=== PATIENT | male | born 1965 | race Caucasian/White ===

== ENCOUNTER 2019-09-02 17:55 | Inpatient (IN) | payer OTHER ==
[2019-09-02] MEDS ORDERED: ASPIRIN 81 MG PO STA (18:44)
[2019-09-02 18:55] LABS: Basophils # (A) 0.1 k/uL (0-0.2); Basophils % (A) 1 %; Eosinophils # (A) 0.4 k/uL (0-0.7); Eosinophils % (A) 5 %; HCT 38.1 % (39.0-53.0); HGB 13.7 gm/dL (13.0-17.5); Lymphocytes # (A) 2.8 k/uL (1.0-4.8); Lymphocytes % (A) 30 %; MCH 33.6 pg (25.0-35.0); MCV 93.4 fL (80.0-100.0); Monocytes # (A) 0.6 k/uL (0-1.0); Monocytes % (A) 7 %; Neutrophils # (A) 5.2 k/uL (1.3-7.7); Neutrophils % (A) 56 %; Platelet Count 189 k/uL (150-450); RBC 4.08 m/uL (4.30-5.90); RDW 11.8 % (11.5-15.5); WBC 9.3 k/uL (3.8-10.6)
[2019-09-02 19:05] LABS: ALT 32 U/L (4-49); AST 31 U/L (17-59); African American GFR (CKD) >90 (>60 ml/min/1.73 sqM); Albumin 4.1 g/dL (3.5-5.0); Alkaline Phosphatase 32 U/L (38-126); Anion Gap 8 mmol/L; Blood Urea Nitrogen 14 mg/dL (9-20); Calcium 9.7 mg/dL (8.4-10.2); Carbon Dioxide 25 mmol/L (22-30); Chloride 103 mmol/L (98-107); Glucose 152 mg/dL (74-99); Magnesium 1.8 mg/dL (1.6-2.3); Non-African American GFR(CKD) >90 (>60 ml/min/1.73 sqM); Potassium 4.2 mmol/L (3.5-5.1); Sodium 136 mmol/L (137-145); Total Bilirubin 0.4 mg/dL (0.2-1.3); Total Protein 6.3 g/dL (6.3-8.2)
[2019-09-02 19:10] LABS: INR 1.1 (<1.2); Partial Thromboplastin Time 23.6 sec (22.0-30.0); Prothrombin Time 11.2 sec (9.0-12.0)
--- NOTE | 2019-09-02 19:22 | XR ---
EXAMINATION TYPE: XR chest 2V DATE OF EXAM: 09/02/2019 COMPARISON: NONE HISTORY: Chest pain TECHNIQUE: Frontal and lateral views of the chest are obtained. FINDINGS: There is no focal air space opacity, pleural effusion, or pneumothorax seen. The cardiac silhouette size is within normal limits. The osseous structures are intact, thoracic spondylosis is noted, arthropathy present at the acromioclavicular joints. Patient is post median sternotomy. There are overlying cardiac leads. Superior sternal wire is fractured. IMPRESSION: No acute cardiopulmonary process.
--- NOTE | 2019-09-02 19:27 | ED ---
Chest Pain HPI - General Source: patient Mode of arrival: ambulatory Limitations: no limitations <Rose Rosenberg - Last Filed: 09/02/19 19:32> <Selina Alvarez - Last Filed: 09/05/19 21:54> - General Chief Complaint: Chest Pain Stated Complaint: Chest pain Time Seen by Provider: 09/02/19 18:08 - History of Present Illness Initial Comments: 54-year-old male patient with past medical history significant for coronary artery disease, CABG, hypertension, hyperlipidemia presents to the emergency department today for evaluation of chest pain. Patient is currently incarcerated, states he did have an episode similar to this on August 15. States he was not evaluated at that time but did have nitro. States the symptoms returned today several hours ago. He states the pain is in the center of his chest radiates on the left arm and into his back. He does report some shortness of breath but denies any nausea or vomiting. Denies any sweating. Patient states he has been receiving his medications while in [facility]. Patient denies any recent rash, fever, chills, cough, abdominal pain, diarrhea, constipation, back pain, numbness, tingling, dizziness, weakness, hematuria, dysuria, urinary urgency, urinary frequency, headache, visual changes, or any other complaints. (Rose Rosenberg) - Related Data Home Medications Medication Instructions Recorded Confirmed Aspirin EC [Ecotrin Low Dose] 81 mg PO DAILY 09/02/19 09/02/19 Atorvastatin [Lipitor] 80 mg PO HS 09/02/19 09/02/19 Carvedilol [Coreg] 25 mg PO BID 09/02/19 09/02/19 DULoxetine HCL [Cymbalta] 60 mg PO BID 09/02/19 09/02/19 Hydrochlorothiazide [Hydrodiuril] 25 mg PO DAILY 09/02/19 09/02/19 Isosorbide Mononitrate ER [Imdur] 60 mg PO DAILY 09/02/19 09/02/19 Losartan Potassium 100 mg PO DAILY 09/02/19 09/02/19 Naproxen [Naprosyn] 500 mg PO BID 09/02/19 09/02/19 Nitroglycerin Sl Tabs [Nitrostat] 0.4 mg SUBLINGUAL Q5M PRN 09/02/19 09/02/19 Spironolactone [Aldactone] 25 mg PO DAILY 09/02/19 09/02/19 amLODIPine [Norvasc] 10 mg PO DAILY 09/02/19 09/02/19 hydrALAZINE HCL [Apresoline] 25 mg PO HS 09/02/19 09/02/19 hydrALAZINE HCL [Apresoline] 50 mg PO DAILY 09/02/19 09/02/19 metFORMIN HCL [Glucophage] 500 mg PO BID 09/02/19 09/02/19 Allergies Allergy/AdvReac Type Severity Reaction Status Date / Time No Known Allergies Allergy Verified 09/02/19 20:03 Review of Systems ROS Other: All systems not noted in ROS Statement are negative. <Rose Rosenberg - Last Filed: 09/02/19 19:32> ROS Other: All systems not noted in ROS Statement are negative. <Selina Alvarez - Last Filed: 09/05/19 21:54> ROS Statement: Those systems with pertinent positive or pertinent negative responses have been documented in the HPI. EKG Findings - EKG Comments: EKG Findings:: EKG obtained at 1810 shows normal sinus rhythm with a ventricular rate of 66, AL interval 162, QRS duration 90, QT 402, QTc 421. No evidence of ST elevation or depression. <Rose Rosenberg - Last Filed: 09/02/19 19:32> Past Medical History Past Medical History: Coronary Artery Disease (CAD), Diabetes Mellitus, Hyperlipidemia, Hypertension Additional Past Medical History / Comment(s): chronic back pain History of Any Multi-Drug Resistant Organisms: None Reported Past Surgical History: Back Surgery, Coronary Bypass/CABG, Heart Catheterization With Stent Additional Past Surgical History / Comment(s): hardware to back Past Psychological History: No Psychological Hx Reported Smoking Status: Never smoker Past Alcohol Use History: None Reported Past Drug Use History: None Reported <Rose Rosenberg - Last Filed: 09/02/19 19:32> General Exam Limitations: no limitations General appearance: alert, in no apparent distress, other (This is a well- developed, well-nourished adult male patient in no acute distress. Vital signs upon presentation are temperature 97.6F, pulse 67, respirations 18, blood pressure 126/74, pulse ox 100% on room air.) ENT exam: Present: normal exam, normal oropharynx, mucous membranes moist Respiratory exam: Present: normal lung sounds bilaterally. Absent: respiratory distress, wheezes, rales, rhonchi, stridor Cardiovascular Exam: Present: regular rate, normal rhythm, normal heart sounds. Absent: systolic murmur, diastolic murmur, rubs, gallop, clicks GI/Abdominal exam: Present: soft, normal bowel sounds. Absent: distended, tenderness, guarding, rebound, rigid Neurological exam: Present: alert, oriented X3, CN II-XII intact Psychiatric exam: Present: normal affect, normal mood Skin exam: Present: warm, dry, intact, normal color. Absent: rash <Rose Rosenberg - Last Filed: 09/02/19 19:32> Course Vital Signs 09/02/19 09/02/19 09/02/19 17:58 19:30 20:30 Temperature 97.6 F 98.1 F Pulse Rate 67 71 71 Respiratory 18 18 19 Rate Blood Pressure 126/74 121/86 131/76 O2 Sat by Pulse 100 99 97 Oximetry Chest Pain MDM <Rose Rosenberg - Last Filed: 09/02/19 19:32> <Selina Alvarez - Last Filed: 09/05/19 21:54> - [facility] Radiology:Two-view x-ray of the chest is obtained. Report was reviewed in its entirety. Impression by Dr. Carpenter shows no acute cardiopulmonary process. MDM: 54-year-old male patient with past medical history significant for coronary artery disease, CABG, hyperlipidemia, hypertension presents to the emergency department today for evaluation of chest pain and shortness of breath. Physical examination is unremarkable. EKG showed normal sinus rhythm. There is no evidence of ST elevation or depression. Given patient's history we will admit to the hospital for further evaluation by cardiology. He was given aspirin. Patient is agreeable with this plan. (Rose Rosenberg) I was available for consultation in the emergency department. The history and physical exam were done by the midlevel provider. I was consulted for this patients care. I reviewed the case with the midlevel provider and based on their presentation of the patient, I agree with the assessment, medical decision making and plan of care as documented. Chart was dictated using [employer] dictation software. Attempts were made to correct any dictation errors however some typographical errors may persist. Patient was seen during a national state of emergency due to the Covid-19 pandemic. (Selina Alvarez) Disposition Decision to Admit Reason: Admit from EC Decision Date: 09/02/19 Decision Time: 19:30 <Rose Rosenberg - Last Filed: 09/02/19 19:32> <Selina Alvarez - Last Filed: 09/05/19 21:54> Clinical Impression: Chest pain Disposition: ADMITTED IP TO THIS HOSP Condition: Serious
[2019-09-02] MEDS ORDERED: NITROGLYCERIN SL TABS 0.4 MG TAB SUBLINGUAL PRN (19:33)
[2019-09-02] MEDS ORDERED: MORPHINE SULFATE 4 MG/ML SYRINGE IVP PRN (19:34)
--- NOTE | 2019-09-02 22:41 | P.HPIM ---
History of Present Illness H&P Date: 09/02/19 The patient is a 54-year-old male with a PMH of type 2 diabetes mellitus, CAD status post CABG in [address] in [address], hypertension, and hyperlipidemia, currently incarcerated who was sent to the ED with complaints of persistent chest discomfort. The patient reports that he had previously been following with a outboard motor inspector at [facility], last seen in March 2019. Patient had reported to them his complaints of exertional dyspnea and substernal chest discomfort, and as per the patient, he was scheduled to undergo a cardiac catheterization with a possible revision of his CABG in June 2019. The patient was however incarcerated in late March 2019, and thereby has not had any follow-ups. He reports that 2 weeks ago, he had a sudden onset of substernal 9/10, pressure-like discomfort, radiating to the left arm, with associated shortness of breath, nausea, and diaphoresis. He was given nitroglycerin no did not seek further medical attention. The patient reports that he continues to have substernal discomfort though decreased intensity of 2/10, and sometimes related to exertion. He also reports a chronic lower back pain, and having undergone multiple surgeries, which is unchanged from previously. He denied fever, chills, cough, nausea, vomiting, visual disturbances, or headache. He underwent an extensive evaluation in the emergency room EKG showing normal sinus rhythm at 66 bpm with Q waves in leads II and III with no ST-T wave changes noted. CXR was unremarkable. Laboratory evaluation revealed Troponin less than 0.012, WBC count 9.3, hemoglobin 13.7, platelets 189, sodium 136, potassium 4.2, chloride 103, CO2 25, BUN 14, creatinine 0.70, and glucose 152. Review of Systems Pertinent positives and negatives as discussed in HPI, a complete review of systems was performed and all other systems are negative. Past Medical History Past Medical History: Coronary Artery Disease (CAD), Diabetes Mellitus, Hyperlipidemia, Hypertension Additional Past Medical History / Comment(s): chronic back pain History of Any Multi-Drug Resistant Organisms: None Reported Past Surgical History: Back Surgery, Coronary Bypass/CABG, Heart Catheterization With Stent Additional Past Surgical History / Comment(s): hardware to back Past Psychological History: No Psychological Hx Reported Smoking Status: Never smoker Past Alcohol Use History: None Reported Past Drug Use History: None Reported Medications and Allergies Home Medications Medication Instructions Recorded Confirmed Type Aspirin EC [Ecotrin Low Dose] 81 mg PO DAILY 09/02/19 09/02/19 History Atorvastatin [Lipitor] 80 mg PO HS 09/02/19 09/02/19 History Carvedilol [Coreg] 25 mg PO BID 09/02/19 09/02/19 History DULoxetine HCL [Cymbalta] 60 mg PO BID 09/02/19 09/02/19 History Hydrochlorothiazide [Hydrodiuril] 25 mg PO DAILY 09/02/19 09/02/19 History Isosorbide Mononitrate ER [Imdur] 60 mg PO DAILY 09/02/19 09/02/19 History Losartan Potassium 100 mg PO DAILY 09/02/19 09/02/19 History Naproxen [Naprosyn] 500 mg PO BID 09/02/19 09/02/19 History Nitroglycerin Sl Tabs [Nitrostat] 0.4 mg SUBLINGUAL Q5M PRN 09/02/19 09/02/19 History Spironolactone [Aldactone] 25 mg PO DAILY 09/02/19 09/02/19 History amLODIPine [Norvasc] 10 mg PO DAILY 09/02/19 09/02/19 History hydrALAZINE HCL [Apresoline] 25 mg PO HS 09/02/19 09/02/19 History hydrALAZINE HCL [Apresoline] 50 mg PO DAILY 09/02/19 09/02/19 History metFORMIN HCL [Glucophage] 500 mg PO BID 09/02/19 09/02/19 History Allergies Allergy/AdvReac Type Severity Reaction Status Date / Time No Known Allergies Allergy Verified 09/02/19 20:03 Physical Exam Vitals: Vital Signs Temp Pulse Resp BP Pulse Ox 09/02/19 19:30 71 18 121/86 99 09/02/19 17:58 97.6 F 67 18 126/74 100 Intake and Output 09/02/19 09/02/19 09/02/19 06:59 14:59 22:59 Other: Weight 88.904 kg General: non toxic, no distress, appears at stated age, normal weight Derm: no unusual rashes/lesions no unusual ecchymoses, warm, dry Head: atraumatic, normocephalic, symmetric Eyes: EOMI, no lid lag, anicteric sclera, pupils equal round reactive to light ENT: Nose and ears atraumatic, no thrush, no pharyngeal erythema Neck: No thyromegaly, no cervical lymphadenopathy, trachea midline, supple Mouth: no lip lesion, mucus membranes moist Cardiovascular: S1S2 reg, no murmur, positive posterior tibial pulse bilateral, no edema, capillary refill less than 2 seconds Lungs: CTA bilateral, no rhonchi, no rales , no accessory muscle use Abdominal: soft, nontender to palpation, no guarding, no appreciable organomegaly, normal bowel sounds Ext: no gross muscle atrophy, muscle strength 5 out of 5 in all 4 extremities grossly, no contractures, Neuro: CN II-XI grossly intact, light touch intact all 4 extremities, finger to nose within normal limits, Psych: Alert, oriented, appropriate affect Results CBC & Chem 7: 09/02/19 18:25 09/02/19 18:25 Labs: Abnormal Lab Results - Last 24 Hours (Table) 09/02/19 09/02/19 Range/Units 18:25 18:25 RBC 4.08 L (4.30-5.90) m/uL Hct 38.1 L (39.0-53.0) % Sodium 136 L (137-145) mmol/L Glucose 152 H (74-99) mg/dL Alkaline Phosphatase 32 L (38-126) U/L Assessment and Plan Plan: Chest pain, in setting of significant history of CAD status post CABG -Cardiology consult -Trend troponin -Will need records from [facility] -Cardiac monitoring -Continue with aspirin for now -Continue home meds: Lipitor, Coreg Type II DM -Takes metformin at baseline -Obtain A1c -EVELINE with FS Hypertension -Continue with home meds: HCTZ, Imdur, Aldactone, Norvasc -Hold off on Coreg due to borderline HR Hyperlipidemia -Continue with Lipitor home med DVT prophylaxis -Heparin subq The patient is admitted with an anticipated less than 2 midnight stay for evaluation of chest pain CODE STATUS: Full Code Discussed with: patient Anticipated discharge date: 1-[address]: [facility] A total of 40 minutes was spent on the care of this complex patient more than 50% of the time was spent in counseling and care coordination.
[2019-09-02] MEDS ORDERED: MORPHINE SULFATE 4 MG/ML SYRINGE ONE ×2 (23:10→23:12)
[2019-09-03] MEDS ORDERED: NITROGLYCERIN SL TABS 0.4 MG TAB SUBLINGUAL ONE (00:40)
[2019-09-03 06:45] LABS: Glucose,Whole Blood 160 mg/dL (75-99)
[2019-09-03 07:14] LABS: Cholesterol 91 mg/dL (<200); HDL Cholesterol 30 mg/dL (40-60); LDL Cholesterol,Calculated 31 mg/dL (0-99); Triglycerides 151 mg/dL (<150)
[2019-09-03] MEDS ORDERED: CARVEDILOL 12.5 MG TAB PO SCH (07:30)
[2019-09-03] MEDS: LOSARTAN 50 MG TAB PO SCH (08:49)
[2019-09-03] MEDS: HYDROCHLOROTHIAZIDE 25 MG TAB PO SCH (08:49)
[2019-09-03] MEDS: ISOSORBIDE MONONITRATE ER 60 MG TAB.ER.24H PO SCH (08:49)
[2019-09-03] MEDS: amLODIPine 10 MG TAB PO SCH (08:49)
[2019-09-03] MEDS: DULoxetine HCL 60 MG CAPSULE.DR PO SCH ×2 (08:49→20:39)
[2019-09-03] MEDS: hydrALAZINE HCL 50 MG TAB PO SCH (08:49)
[2019-09-03] MEDS: ASPIRIN 325 MG TAB PO SCH (08:49)
[2019-09-03] MEDS: HEPARIN SODIUM,PORCINE 5,000 UNIT/ML 1 ML VIAL SQ SCH (08:50)
[2019-09-03] MEDS: CARVEDILOL 3.125 MG TAB PO SCH ×2 (09:54→17:07)
[2019-09-03] MEDS ORDERED: NITROGLYCERIN SL TABS 0.4 MG TAB SUBLINGUAL PRN (10:57)
[2019-09-03] MEDS ORDERED: ALPRAZolam 0.25 MG TAB PO PRN (10:57)
[2019-09-03] MEDS ORDERED: ATORVASTATIN 80 MG TAB PO STA (10:57)
[2019-09-03] MEDS ORDERED: SODIUM CHLORIDE 0.9% 1,000 ML in EMPTY BAG 1 BAG IV ONE (10:57)
[2019-09-03 11:40] LABS: Glucose,Whole Blood 138 mg/dL (75-99)
[2019-09-03] MEDS: INSULIN ASPART (NovoLOG) 100 UNIT/ML VIAL SQ SCH ×2 (12:37→12:38)
--- NOTE | 2019-09-03 12:56 | P.CRDCN ---
History of Present Illness History of present illness: This is Aisha Dobbs PA-C dictating a consult on this patient The patient was interviewed and examined by me as well as by Dr. Rock Case discussed with Dr. Rock and he agrees with the plan of care HPI Patient is a 54-year-old male with a history significant for CAD status post CABG, hypertension, diabetes, dyslipidemia, chronic back pain who presented with complaints of chest discomfort. He follows with a physician at the [facility]. Apparently he was supposed to undergo cardiac catheterization in June however he is currently incarcerated so this was unable to be completed. For the last 3-4 weeks he has been having recurrent chest discomfort which he describes as a pressure with radiation down the left arm and associated numbness and tingling in the left hand. He also admits to associated nausea, dizziness, and mild shortness of breath. It is usually relieved by nitroglycerin however it has become progressively worse and yesterday it was not relieved by 2 nitroglycerin therefore he presented for evaluation. Upon arrival his vital signs were stable. EKG upon arrival shows sinus mechanism with Q waves in V1, no definite ST segment changes. Chest x-ray showed no acute process. Troponins negative 3. Patient was admitted for further evaluation. Repeat EKG this morning is unchanged. He continues to have chest pressure but states it has improved somewhat. It did get worse when he got up and use the restroom. Does complain of a headache. ROS: No fevers, chills or rigors, no cough, phlegm or expectoration, Positive for nausea no hematuria, dysuria, Positive for back pain no strokes or seizures, no skin lesions. EXAMINATION: Temperature 97.7F, pulse 60, respirations 16, blood pressure 125/74, oxygen saturation 98% on room air Patient seen and examined lying in bed, does not appear to be in any acute distress Lungs are clear to auscultation bilaterally Heart is regular, no audible murmurs No elevated JVD No lower extremity edema, extremities warm REVIEW OF LABS, ECG & MEDICAL DATA WBC 9.3, hemoglobin 13.7, platelets 198, potassium 4.2, BUN 14, creatinine 0.7 Troponin negative 3 LDL 31 Sinus rhythm to sinus bradycardia in the 50s on telemetry IMPRESSION / ASSESSMENT: #1 Recurrent symptoms of chest discomfort with associated shortness of breath, nausea, and dizziness, no acute ST segment changes on EKG, troponins negative 3 #2 history of CAD status post CABG #3 hypertension #4 diabetes #5 dyslipidemia #6 chronic back pain PLAN: Restart low-dose Coreg and monitor telemetry Continue Imdur Continue aspirin, statins, and antihypertensive therapy Obtain records from [facility] Plan for coronary angiogram likely tomorrow Obtain 2-D echocardiogram and Doppler studies to assess cardiac structure and function Past Medical History Past Medical History: Coronary Artery Disease (CAD), Diabetes Mellitus, Hyperlipidemia, Hypertension Additional Past Medical History / Comment(s): chronic back pain History of Any Multi-Drug Resistant Organisms: None Reported Past Surgical History: Back Surgery, Coronary Bypass/CABG, Heart Catheterization With Stent Additional Past Surgical History / Comment(s): hardware to back Date of Last Stent Placement:: 2010 Past Psychological History: No Psychological Hx Reported Smoking Status: Never smoker Past Alcohol Use History: None Reported Past Drug Use History: None Reported Medications and Allergies Home Medications Medication Instructions Recorded Confirmed Type Aspirin EC [Ecotrin Low Dose] 81 mg PO DAILY 09/02/19 09/02/19 History Atorvastatin [Lipitor] 80 mg PO HS 09/02/19 09/02/19 History Carvedilol [Coreg] 25 mg PO BID 09/02/19 09/02/19 History DULoxetine HCL [Cymbalta] 60 mg PO BID 09/02/19 09/02/19 History Hydrochlorothiazide [Hydrodiuril] 25 mg PO DAILY 09/02/19 09/02/19 History Isosorbide Mononitrate ER [Imdur] 60 mg PO DAILY 09/02/19 09/02/19 History Losartan Potassium 100 mg PO DAILY 09/02/19 09/02/19 History Naproxen [Naprosyn] 500 mg PO BID 09/02/19 09/02/19 History Nitroglycerin Sl Tabs [Nitrostat] 0.4 mg SUBLINGUAL Q5M PRN 09/02/19 09/02/19 History Spironolactone [Aldactone] 25 mg PO DAILY 09/02/19 09/02/19 History amLODIPine [Norvasc] 10 mg PO DAILY 09/02/19 09/02/19 History hydrALAZINE HCL [Apresoline] 25 mg PO HS 09/02/19 09/02/19 History hydrALAZINE HCL [Apresoline] 50 mg PO DAILY 09/02/19 09/02/19 History metFORMIN HCL [Glucophage] 500 mg PO BID 09/02/19 09/02/19 History Allergies Allergy/AdvReac Type Severity Reaction Status Date / Time No Known Allergies Allergy Verified 09/02/19 20:03 Physical Exam Vitals: Vital Signs Temp Pulse Pulse Resp BP BP Pulse Ox 09/03/19 07:49 97.7 F 60 16 125/74 98 09/03/19 05:24 98.1 F 52 L 16 116/66 98 09/02/19 21:40 98.0 F 59 L 16 124/70 99 09/02/19 21:20 98.0 F 59 L 16 99 09/02/19 20:30 98.1 F 71 19 131/76 97 09/02/19 19:30 71 18 121/86 99 09/02/19 17:58 97.6 F 67 18 126/74 100 Intake and Output 09/02/19 09/03/19 09/03/19 22:59 06:59 14:59 Other: # Voids 1 2 Weight 88.904 kg 84.6 kg Results 09/02/19 18:25 09/02/19 18:25 Cardiac Enzymes 09/02/19 09/02/19 09/03/19 Range/Units 18:25 18:25 00:35 AST 31 (17-59) U/L Troponin I <0.012 <0.012 (0.000-0.034) ng/mL 09/03/19 Range/Units 06:24 AST (17-59) U/L Troponin I <0.012 (0.000-0.034) ng/mL Coagulation 09/02/19 Range/Units 18:25 PT 11.2 (9.0-12.0) sec APTT 23.6 (22.0-30.0) sec Lipids 09/03/19 Range/Units 06:24 Triglycerides 151 H (<150) mg/dL Cholesterol 91 (<200) mg/dL HDL Cholesterol 30 L (40-60) mg/dL CBC 09/02/19 Range/Units 18:25 WBC 9.3 (3.8-10.6) k/uL RBC 4.08 L (4.30-5.90) m/uL Hgb 13.7 (13.0-17.5) gm/dL Hct 38.1 L (39.0-53.0) % Plt Count 189 (150-450) k/uL Comprehensive Metabolic Panel 09/02/19 Range/Units 18:25 Sodium 136 L (137-145) mmol/L Potassium 4.2 (3.5-5.1) mmol/L Chloride 103 (98-107) mmol/L Carbon Dioxide 25 (22-30) mmol/L BUN 14 (9-20) mg/dL Creatinine 0.70 (0.66-1.25) mg/dL Glucose 152 H (74-99) mg/dL Calcium 9.7 (8.4-10.2) mg/dL AST 31 (17-59) U/L ALT 32 (4-49) U/L Alkaline Phosphatase 32 L (38-126) U/L Total Protein 6.3 (6.3-8.2) g/dL Albumin 4.1 (3.5-5.0) g/dL Current Medications Generic Name Dose Route Start Last Admin Trade Name Vinceq PRN Reason Stop Dose Admin Amlodipine Besylate 10 mg 09/03/19 09:00 09/03/19 08:49 Norvasc PO 10 mg DAILY [facility] Administration Aspirin 325 mg 09/03/19 09:00 09/03/19 08:49 Aspirin PO 325 mg DAILY [facility] Administration Atorvastatin Calcium 80 mg 09/03/19 21:00 Lipitor PO HS [facility] Carvedilol 3.125 mg 09/03/19 09:45 09/03/19 09:54 Coreg PO 3.125 mg BID-W/MEALS ADALBERTO Administration Duloxetine HCl 60 mg 09/03/19 09:00 09/03/19 08:49 Cymbalta PO 60 mg BID [facility] Administration Heparin Sodium (Porcine) 5,000 unit 09/03/19 00:00 09/03/19 08:50 Heparin SQ 5,000 unit Q8HR ADALBERTO Administration Hydralazine HCl 25 mg 09/03/19 21:00 Apresoline PO HS [facility] Hydralazine HCl 50 mg 09/03/19 09:00 09/03/19 08:49 Apresoline PO 50 mg DAILY ADALBERTO Administration Hydrochlorothiazide 25 mg 09/03/19 09:00 09/03/19 08:49 Hydrodiuril PO 25 mg DAILY [facility] Administration Insulin Aspart 0 unit 09/03/19 07:30 Novolog SQ AC-TID [facility] Protocol Isosorbide Mononitrate 60 mg 09/03/19 09:00 09/03/19 08:49 Imdur PO 60 mg DAILY [facility] Administration Losartan Potassium 100 mg 09/03/19 09:00 09/03/19 08:49 Cozaar PO 100 mg DAILY [facility] Administration Nitroglycerin 0.4 mg 09/02/19 19:33 Nitrostat SUBLINGUAL Q5M PRN Chest Pain Intake and Output 09/02/19 09/03/19 09/03/19 22:59 06:59 14:59 Other: # Voids 1 2 Weight 88.904 kg 84.6 kg 09/02/19 18:25 09/02/19 18:25
[2019-09-03 14:30] LABS: Hemoglobin A1C 6.1 % (4.0-6.0)
[2019-09-03 16:46] LABS: Glucose,Whole Blood 105 mg/dL (75-99)
--- NOTE | 2019-09-03 18:07 | P.PN ---
Subjective Progress Note Date: 09/03/19 Principal diagnosis: Chest pain Patient was seen and examined. No acute events overnight. Patient reports continued chest pain that has not changed since admission. Chest pain is worsened with deep inspiration. Pain is 4-5 out of 10 in severity. He denies any nausea or vomiting. No fever or chills. Objective - Vital Signs Vital signs: Vital Signs Temp 97.7 F 09/03/19 07:49 Pulse 59 L 09/03/19 16:00 Resp 16 09/03/19 16:00 BP 111/66 09/03/19 16:00 Pulse Ox 98 09/03/19 16:00 Intake & Output 09/02/19 09/03/19 09/03/19 18:59 06:59 18:59 Intake Total 240 Balance 240 Weight 88.904 kg 84.6 kg Intake: Oral 240 Other: # Voids 2 1 - Exam General: [non toxic], [no distress], [appears at stated age] Derm: [warm], [dry] Head: [atraumatic], [normocephalic], [symmetric] Eyes: [EOMI], [no lid lag], [anicteric sclera] Mouth: [no lip lesion], [mucus membranes moist] Cardiovascular: [S1S2 reg], [no murmur], [positive posterior tibial pulse bilateral], Lungs: [CTA bilateral], [no rhonchi, no rales] , [no accessory muscle use] Abdominal: [soft], [ nontender to palpation], [no guarding], [no appreciable organomegaly] Ext: [no gross muscle atrophy], [no edema], [no contractures] Neuro: [ CN II-XI grossly intact], [no focal neuro deficits] Psych: [Alert], [oriented], [appropriate affect] - Labs CBC & Chem 7: 09/02/19 18:25 09/02/19 18:25 Labs: Abnormal Lab Results - Last 24 Hours (Table) 09/02/19 09/02/19 09/03/19 Range/Units 18:25 18:25 06:24 RBC 4.08 L (4.30-5.90) m/uL Hct 38.1 L (39.0-53.0) % Sodium 136 L (137-145) mmol/L Glucose 152 H (74-99) mg/dL POC Glucose (mg/dL) (75-99) mg/dL Hemoglobin A1c (4.0-6.0) % Alkaline Phosphatase 32 L (38-126) U/L Triglycerides 151 H (<150) mg/dL HDL Cholesterol 30 L (40-60) mg/dL 09/03/19 09/03/19 09/03/19 Range/Units 06:24 06:43 11:27 RBC (4.30-5.90) m/uL Hct (39.0-53.0) % Sodium (137-145) mmol/L Glucose (74-99) mg/dL POC Glucose (mg/dL) 160 H 138 H (75-99) mg/dL Hemoglobin A1c 6.1 H (4.0-6.0) % Alkaline Phosphatase (38-126) U/L Triglycerides (<150) mg/dL HDL Cholesterol (40-60) mg/dL 09/03/19 Range/Units 16:25 RBC (4.30-5.90) m/uL Hct (39.0-53.0) % Sodium (137-145) mmol/L Glucose (74-99) mg/dL POC Glucose (mg/dL) 105 H (75-99) mg/dL Hemoglobin A1c (4.0-6.0) % Alkaline Phosphatase (38-126) U/L Triglycerides (<150) mg/dL HDL Cholesterol (40-60) mg/dL Assessment and Plan Assessment: Chest pain, in setting of significant history of CAD status post CABG -Cardiology consult, plans for possible coronary angiogram tomorrow -Troponin negative, ACS ruled out -Will need records from [facility] -Cardiac monitoring -Continue with aspirin for now -Continue home meds: Lipitor, Coreg Type II DM -Takes metformin at baseline -A1c 6.1 -EVELINE with FS Hypertension -Continue with home meds: HCTZ, Imdur, Aldactone, Norvasc -Coreg restarted today. Hyperlipidemia -Continue with Lipitor home med DVT prophylaxis -Heparin subq
[2019-09-03 20:25] LABS: Glucose,Whole Blood 132 mg/dL (75-99)
[2019-09-03] MEDS: hydrALAZINE HCL 25 MG TAB PO SCH (20:39)
[2019-09-03] MEDS: ATORVASTATIN 80 MG TAB PO SCH (20:45)
[2019-09-03] MEDS: ALPRAZolam 0.5 MG TAB PO PRN (20:45)
[2019-09-04] MEDS: HEPARIN SODIUM,PORCINE 5,000 UNIT/ML 1 ML VIAL SQ SCH ×5 (00:15→16:31)
[2019-09-04] MEDS: INSULIN ASPART (NovoLOG) 100 UNIT/ML VIAL SQ SCH ×4 (05:59→17:26)
[2019-09-04 06:30] LABS: Glucose,Whole Blood 144 mg/dL (75-99)
[2019-09-04] MEDS: CARVEDILOL 3.125 MG TAB PO SCH ×2 (06:30→18:32)
[2019-09-04] MEDS: LOSARTAN 50 MG TAB PO SCH (09:03)
[2019-09-04] MEDS: hydrALAZINE HCL 50 MG TAB PO SCH (09:03)
[2019-09-04] MEDS: ASPIRIN 325 MG TAB PO SCH (09:03)
[2019-09-04] MEDS: DULoxetine HCL 60 MG CAPSULE.DR PO SCH ×2 (09:03→20:21)
[2019-09-04] MEDS: ISOSORBIDE MONONITRATE ER 60 MG TAB.ER.24H PO SCH (09:03)
--- NOTE | 2019-09-04 10:25 | ECHOF ---
Referral Reason:cp MEASUREMENTS -------- HEIGHT: 180.3 cm WEIGHT: 84.4 kg BP: 125/74 RVIDd: 3.6 cm (< 3.3) IVSd: 1.2 cm (0.6 - 1.1) LVIDd: 4.9 cm (3.9 - 5.3) LVPWd: 1.2 cm (0.6 - 1.1) IVSs: 1.6 cm LVIDs: 3.3 cm LVPWs: 1.7 cm LA Diam: 4.2 cm (2.7 - 3.8) LAESV Index (A-L): 36.37 ml/m Ao Diam: 3.5 cm (2.0 - 3.7) AV Cusp: 2.4 cm (1.5 - 2.6) MV E Janusz: 0.71 m/s MV DecT: 328 ms MV A Janusz: 0.71 m/s MV E/A Ratio: 1.00 RAP: 5.00 mmHg RVSP: 24.78 mmHg FINDINGS -------- Sinus rhythm. This was a technically good study. The left ventricular size is normal. There is borderline concentric left ventricular hypertrophy. Overall left ventricular systolic function is normal with, an EF between 60 - 65 %. The right ventricle is mildly enlarged. LA is moderately dilated 34-39 ml/m2 The right atrium is normal in size. Interatrial and interventricular septum intact. The aortic valve is trileaflet and appears structurally normal. Mild mitral regurgitation is present. Mild tricuspid regurgitation present. Right ventricular systolic pressure is normal at < 35 mmHg. There is no pulmonic regurgitation present. The aortic root size is normal. IVC Not well visulized. There is no pericardial effusion. CONCLUSIONS -------- 1. Sinus rhythm. 2. This was a technically good study. 3. The left ventricular size is normal. 4. There is borderline concentric left ventricular hypertrophy. 5. Overall left ventricular systolic function is normal with, an EF between 60 - 65 %. 6. The right ventricle is mildly enlarged. 7. LA is moderately dilated 34-39 ml/m2 8. The right atrium is normal in size. 9. Interatrial and interventricular septum intact. 10. The aortic valve is trileaflet and appears structurally normal. 11. Mild mitral regurgitation is present. 12. Mild tricuspid regurgitation present. 13. Right ventricular systolic pressure is normal at < 35 mmHg. 14. There is no pulmonic regurgitation present. 15. The aortic root size is normal. 16. IVC Not well visulized. 17. There is no pericardial effusion. FIRMWARE ENGINEER: Soumya Mccarthy RDCS
[2019-09-04 12:03] LABS: Glucose,Whole Blood 122 mg/dL (75-99)
[2019-09-04] MEDS ORDERED: LIDOCAINE 1% INJ 10MG/ML (20 ML MDV) ONE (12:42)
[2019-09-04] MEDS ORDERED: IV FLUID CONTINUATION 1,000 ML IV ONE ×3 (12:44)
[2019-09-04] MEDS ORDERED: MIDAZOLAM 2 MG/2 ML VIAL IV ONE (12:48)
[2019-09-04] MEDS ORDERED: LIDOCAINE 1% INJ 10MG/ML (20 ML MDV) SQ ONE (12:51)
[2019-09-04] MEDS ORDERED: BIVALIRUDIN BOLUS 250 MG/50 ML IV ONE ×2 (13:09)
[2019-09-04] MEDS ORDERED: HYDROmorphone 1 MG/ML 1 ML SYRINGE ONE (13:09)
[2019-09-04] MEDS: HYDROmorphone 1 MG/ML 1 ML SYRINGE IVP ONE ×2 (13:11→13:19)
[2019-09-04] MEDS ORDERED: niCARdipine 25 MG/10 ML VIAL ONE (13:11)
[2019-09-04] MEDS ORDERED: BIVALIRUDIN 250 MG in SODIUM CHLORIDE 0.9% 50 ML IV ONE (13:14)
[2019-09-04] MEDS: niCARdipine Syringe (1,000 mcg/10 mL) INTRACORON ONE ×3 (13:20→13:53)
[2019-09-04] MEDS: MIDAZOLAM 2 MG/2 ML VIAL IV ONE ×2 (13:23→13:50)
[2019-09-04] MEDS ORDERED: CLOPIDOGREL 75 MG TAB ONE (13:34)
[2019-09-04] MEDS ORDERED: CLOPIDOGREL 75 MG TAB PO ONE (13:35)
[2019-09-04] MEDS ORDERED: IOPAMIDOL-370 125ML BTL INJ ONE (13:39)
[2019-09-04] MEDS: NITROGLYCERIN 1000MCG/10ML SYRINGE INTRAARTER ONE ×2 (13:40→13:53)
--- NOTE | 2019-09-04 13:51 | P.PN ---
Subjective This is Aisha Dobbs PA-C scribing on behalf of Dr. Rock The patient was interviewed and examined by Dr. Rock HPI/interval history Patient is a 54-year-old male with a history significant for CAD status post CABG, hypertension, diabetes, dyslipidemia, chronic back pain who presented with complaints of chest discomfort. He follows with a physician at the [facility] and was supposed to have an angiogram in June. He has had intermittent chest discomfort for the last few weeks. Has progressively gotten worse and he presented for evaluation. EKG did not show any acute changes and troponins have been negative 3. He is awaiting coronary angiogram. Dr. Rock saw and evaluated the patient this morning in follow-up. Patient is continuing to complain of chest discomfort. EXAMINATION She is afebrile, pulse in the 60s, respirations 12, blood pressure 125/59, oxygen saturation 99% on room air Patient seen and examined by Dr. Rock, in no acute distress Lungs are clear to auscultation bilaterally Heart is regular, no audible murmurs No elevated JVD No lower extremity edema, extremities warm REVIEW OF LABS, ECG No new labs today Echocardiogram shows EF 60-65% IMPRESSION / ASSESSMENT: #1 Recurrent symptoms of chest discomfort with associated shortness of breath, nausea, and dizziness, no acute ST segment changes on EKG, troponins negative 3, continues to complain of chest discomfort #2 history of CAD status post CABG #3 hypertension #4 diabetes #5 dyslipidemia #6 chronic back pain #7 normal LV size and function by recent echocardiogram PLAN: Still awaiting records from the [facility] Medications reviewed, continue Imdur, aspirin, statins, beta blockers and anti- hypertensive therapy Patient will undergo coronary angiogram with Dr. Soliz this afternoon Further management thereafter Objective - Vital Signs Vital signs: Vital Signs Temp 98.2 F 09/04/19 11:29 Pulse 68 09/04/19 11:29 Resp 12 09/04/19 12:45 BP 125/59 09/04/19 11:29 Pulse Ox 98 09/04/19 12:45 Intake & Output 09/03/19 09/04/19 09/04/19 18:59 06:59 18:59 Intake Total 480 338.4 Balance 480 338.4 Weight 82.8 kg Intake: Intake, IV Titration 338.4 Amount Sodium Chloride 0.9% 1, 338.4 000 ml In Empty Bag 1 bag @ 1 ML/KG/HR 84.6 mls/hr IV .[id number] ONE Rx#: [id number] Oral 480 Other: # Voids 1 1 1 # Bowel Movements 1 - Labs CBC & Chem 7: 09/02/19 18:25 09/02/19 18:25 Labs: Abnormal Lab Results - Last 24 Hours (Table) 09/03/19 09/03/19 09/03/19 Range/Units 06:24 16:25 20:23 POC Glucose (mg/dL) 105 H 132 H (75-99) mg/dL Hemoglobin A1c 6.1 H (4.0-6.0) % 09/04/19 09/04/19 Range/Units 06:29 11:58 POC Glucose (mg/dL) 144 H 122 H (75-99) mg/dL Hemoglobin A1c (4.0-6.0) %
[2019-09-04] MEDS ORDERED: IOPAMIDOL-370 100ML BTL INJ ONE (13:55)
[2019-09-04] MEDS ORDERED: RX INFO: IV CONTRAST WAS GIVEN 1 EACH MISC MISCELLANE PRN (14:02)
[2019-09-04] MEDS ORDERED: MAG HYDROX/AL HYDROX/SIMETH 30 ML CUP PO PRN (14:02)
[2019-09-04] MEDS ORDERED: NITROGLYCERIN SL TABS 0.4 MG TAB SUBLINGUAL PRN (14:02)
[2019-09-04] MEDS ORDERED: ZOLPIDEM 5 MG TAB PO PRN (14:02)
[2019-09-04] MEDS ORDERED: ATROPINE SULFATE 0.1 MG/ML 10ML SYRINGE IV PRN (14:02)
[2019-09-04] MEDS ORDERED: SODIUM CHLORIDE 0.9% 1,000 ML IV SCH (14:15)
[2019-09-04] MEDS: HYDROCHLOROTHIAZIDE 25 MG TAB PO SCH (14:55)
--- NOTE | 2019-09-04 15:31 | CC ---
CARDIAC CATHETERIZATION REPORT DATE OF SERVICE: 09/04/2019 PERFORMING PHYSICIAN: Omar Soliz M.D. PROCEDURES PERFORMED: 1. Selective left and right coronary angiogram. 2. Left internal mammary artery angiogram. 3. Saphenous vein graft to right coronary artery angiogram. 4. Left heart catheterization. INDICATION: This is a very pleasant 54-year-old gentleman with coronary artery disease who underwent in the past coronary artery bypass grafting with single-vessel bypass with graft to the right coronary artery and also prior coronary artery stenting of the LAD. He presented to the hospital complaining of chest discomfort. He was seen by Dr. Rock, who advised proceeding with coronary artery bypass grafting. APPROACH: Right common femoral artery. COMPLICATIONS: None. LEVEL OF SEDATION: Moderate with sedation length of 67 minutes. PROCEDURE DESCRIPTION: After obtaining informed consent, the patient was brought to the cardiac engineering laboratory technician. The right common femoral artery was cannulated using micropuncture technique. The micropuncture wire passed easily. Then I placed a 6-Malaysian sheath at the right common femoral artery. I did selective left and right coronary angiogram with JL4 and JR4 catheters. ORTIZ angiogram was performed using the JR4 catheter. SVG to RCA angiogram was performed using multi-purpose catheter. After that I did intervene on the SVG to RCA. Please see separate paragraph for that. After that I did left heart catheterization using 6- Malaysian pigtail catheter. The procedure was completed without any complication. SELECTIVE CORONARY ANGIOGRAM: 1. The left main appeared to be diseased in the range of 20% to 30%.. It bifurcates into LCX and LAD. 2. The LCX is a large-caliber vessel and it is a nondominant vessel. The proximal LCX appeared to have intermediate disease in the range of 60% to 70%. This is by the bifurcation of the first obtuse marginal branch, which is a large-caliber vessel with multiple areas of disease up to about 90% in the mid portion. The mid left circumflex appeared to have mild disease only and gives rise to a second OM branch which seems to be angiographically normal. 3. LAD: The proximal LAD appeared to have intermediate to severe lesion in the range of 50% to 60%. The mid LAD appeared to be stented and the stent is patent. The LAD in the mid portion gives rise to a large diagonal branch which appeared to be angiographically normal. After that diagonal branch, the LAD has two areas of disease up to about 80% in the mid to distal portion. 4. The right coronary artery is chronically occluded by the ostium. ANGIOGRAM OF CORONARY ARTERY BYPASSES: 1. The ORTIZ is patent, but the ORTIZ is not connected to the heart. 2. SVG to RCA has a critical lesion at the distal anastomosis that appeared to be in the range of 99% with sluggish flow in the graft itself. HEMODYNAMICS: The LVEDP was 4 to 6 mmHg with avkh-up-srni gradient of 30 mmHg. PERCUTANEOUS CORONARY INTERVENTION OF SAPHENOUS VEIN GRAFT TO RIGHT CORONARY ARTERY: Anticoagulation was initiated using Angiomax. Subsequently I did engage the graft using a multi-purpose catheter. I did wire the lesion using a Whisper wire. PTCA ballooning was achieved using a 2.5 mm balloon, and subsequently I deployed a 3.0 x 23 mm Xience ONIEL where the stent was positioned under fluoroscopic guidance and deployed under 18 atmospheres for 20 seconds. I post-dilated the stent using a 3.5 mm NC balloon. IC nicardipine as well as nitroglycerin was given, and the final angiogram showed excellent angiographic results. The procedure was completed without any complication. CONCLUSION: 1. Severe triple-vessel coronary artery disease. 2. Patent stent in the mid LAD. The proximal LAD has intermediate to severe lesion and the distal LAD has severe lesion. 3. Critical disease involving the left circumflex/OM system. 4. Chronic total occlusion of the right coronary artery. 5. Critical disease involving the SVG to RCA. 6. Successful stenting of the distal anastomosis of SVG to RCA as described above. POST-PROCEDURE MANAGEMENT: 1. Continue dual anti-platelet therapy. 2. I would advise medical treatment for the LAD lesions as well as left circumflex/OM lesions. 3. Follow up with the patient. MMODL / IJN: [id number] /
[2019-09-04 16:39] LABS: Glucose,Whole Blood 94 mg/dL (75-99)
[2019-09-04] MEDS ORDERED: HYDROmorphone 0.5 MG/0.5 ML SYRINGE IVP STA (16:43)
[2019-09-04] MEDS ORDERED: HYDROmorphone 0.5 MG/0.5 ML SYRINGE IVP PRN (16:44)
[2019-09-04] MEDS: amLODIPine 10 MG TAB PO SCH (16:48)
--- NOTE | 2019-09-04 18:03 | P.PN ---
Subjective Progress Note Date: 09/04/19 Principal diagnosis: Chest pain Patient was seen and examined. No acute events overnight. Patient reports improvement and has chest pain after cath and stent placement. He does complain of chronic back pain. He denies any nausea or vomiting. No fever or chills. Objective - Vital Signs Vital signs: Vital Signs Temp 98.2 F 09/04/19 11:29 Pulse 77 09/04/19 17:33 Resp 14 09/04/19 17:33 BP 99/63 09/04/19 17:33 Pulse Ox 98 09/04/19 17:20 Intake & Output 09/03/19 09/04/19 09/04/19 18:59 06:59 18:59 Intake Total 480 338.4 1235.98 Balance 480 338.4 1235.98 Weight 82.8 kg Intake: IV 1235.98 Sodium Chloride 0.9% 1, 1000 000 ml In Empty Bag 1 bag @ 1 ML/KG/HR 84.6 mls/hr IV .[id number] ONE Rx#: [id number] Intake, IV Titration 338.4 Amount Sodium Chloride 0.9% 1, 338.4 000 ml In Empty Bag 1 bag @ 1 ML/KG/HR 84.6 mls/hr IV .[id number] ONE Rx#: [id number] Oral 480 Other: # Voids 1 1 1 # Bowel Movements 1 - Exam General: [non toxic], [no distress], [appears at stated age] Derm: [warm], [dry] Head: [atraumatic], [normocephalic], [symmetric] Eyes: [EOMI], [no lid lag], [anicteric sclera] Mouth: [no lip lesion], [mucus membranes moist] Cardiovascular: [S1S2 reg], [no murmur], [positive posterior tibial pulse bilateral], Lungs: [CTA bilateral], [no rhonchi, no rales] , [no accessory muscle use] Abdominal: [soft], [ nontender to palpation], [no guarding], [no appreciable organomegaly] Ext: [no gross muscle atrophy], [no edema], [no contractures] Neuro: [no focal neuro deficits] Psych: [Alert], [oriented], [appropriate affect] - Labs CBC & Chem 7: 09/02/19 18:25 09/02/19 18:25 Labs: Abnormal Lab Results - Last 24 Hours (Table) 09/03/19 09/04/19 09/04/19 Range/Units 20:23 06:29 11:58 POC Glucose (mg/dL) 132 H 144 H 122 H (75-99) mg/dL Assessment and Plan Assessment: Chest pain, in setting of significant history of CAD status post CABG -Cardiology consult, coronary angiogram shows patent stent in mid LAD, intermediate to severe lesion in the proximal and distal LAD, critical disease involving the left circumflex, critical disease of the SVG to RCA, successful stenting of the SVG to RCA. -Cardiology recommends optimizing medical management -Troponin negative, ACS ruled out -Will need records from [facility] -Cardiac monitoring -Continue with aspirin, Lipitor, carvedilol, Plavix Type II DM -Takes metformin at baseline -A1c 6.1 -EVELINE with FS Hypertension -Continue with home meds: HCTZ, Imdur, Aldactone, Norvasc, Coreg Hyperlipidemia -Continue with Lipitor home med DVT prophylaxis -Heparin subq [Patient admitted for chest pain. Underwent angiogram, successful stenting of SVG to RCA. Cardiology recommends medical management. He is pending clinical improvement. Likely DC in 1-2 days.]
[2019-09-04 18:30] LABS: Glucose,Whole Blood 137 mg/dL (75-99)
[2019-09-04 19:42] LABS: Glucose,Whole Blood 224 mg/dL (75-99)
[2019-09-04] MEDS: ALPRAZolam 0.5 MG TAB PO PRN (20:21)
[2019-09-04] MEDS: hydrALAZINE HCL 25 MG TAB PO SCH (20:21)
[2019-09-05 05:46] LABS: Glucose,Whole Blood 116 mg/dL (75-99)
[2019-09-05 05:53] LABS: Basophils # (A) 0.1 k/uL (0-0.2); Basophils % (A) 1 %; Eosinophils # (A) 0.3 k/uL (0-0.7); Eosinophils % (A) 3 %; HCT 41.8 % (39.0-53.0); HGB 14.4 gm/dL (13.0-17.5); Lymphocytes # (A) 1.7 k/uL (1.0-4.8); Lymphocytes % (A) 17 %; MCH 32.8 pg (25.0-35.0); MCHC 34.4 g/dL (31.0-37.0); MCV 95.4 fL (80.0-100.0); Mean Platelet Volume 7.9; Monocytes # (A) 0.8 k/uL (0-1.0); Monocytes % (A) 8 %; Neutrophils # (A) 7.1 k/uL (1.3-7.7); Neutrophils % (A) 70 %; Platelet Count 176 k/uL (150-450); RBC 4.38 m/uL (4.30-5.90); RDW 11.8 % (11.5-15.5); WBC 10.2 k/uL (3.8-10.6)
[2019-09-05 05:58] LABS: African American GFR (CKD) >90 (>60 ml/min/1.73 sqM); Anion Gap 3 mmol/L; Blood Urea Nitrogen 22 mg/dL (9-20); Calcium 9.1 mg/dL (8.4-10.2); Carbon Dioxide 30 mmol/L (22-30); Chloride 103 mmol/L (98-107); Glucose 109 mg/dL (74-99); Non-African American GFR(CKD) >90 (>60 ml/min/1.73 sqM); Potassium 4.5 mmol/L (3.5-5.1); Sodium 136 mmol/L (137-145)
[2019-09-05] MEDS: INSULIN ASPART (NovoLOG) 100 UNIT/ML VIAL SQ SCH ×3 (06:05→17:24)
[2019-09-05] MEDS: ACETAMINOPHEN TAB 325 MG TAB PO PRN ×2 (06:22→20:18)
[2019-09-05] MEDS: CARVEDILOL 3.125 MG TAB PO SCH ×2 (06:22→17:28)
[2019-09-05] MEDS: HYDROCHLOROTHIAZIDE 25 MG TAB PO SCH (08:14)
[2019-09-05] MEDS: hydrALAZINE HCL 50 MG TAB PO SCH (08:14)
[2019-09-05] MEDS: ISOSORBIDE MONONITRATE ER 60 MG TAB.ER.24H PO SCH (08:14)
[2019-09-05] MEDS: DULoxetine HCL 60 MG CAPSULE.DR PO SCH ×2 (08:14→20:20)
[2019-09-05] MEDS: LOSARTAN 50 MG TAB PO SCH (08:14)
[2019-09-05] MEDS: HEPARIN SODIUM,PORCINE 5,000 UNIT/ML 1 ML VIAL SQ SCH ×3 (08:14→15:28)
[2019-09-05] MEDS: ASPIRIN 325 MG TAB PO SCH (08:14)
[2019-09-05] MEDS: amLODIPine 10 MG TAB PO SCH (08:14)
[2019-09-05] MEDS: CLOPIDOGREL 75 MG TAB PO SCH (08:15)
[2019-09-05 10:10] VITALS: BMI 25.5
--- NOTE | 2019-09-05 10:50 | PN ---
PROGRESS NOTE Mr. Estes is a 54-year-old male who presented with symptoms of chest discomfort. He has a history of single bypass to right coronary artery and stenting of the LAD. He underwent cardiac catheterization yesterday and was found to have patent ORTIZ to LAD. The saphenous vein graft to the right coronary artery had significant obstructive disease and underwent stenting of that vessel. He is doing well this morning. He denies any chest pain. His breathing has been stable. He denies any dizziness or palpitation. He denies any nausea. He continues to be at this time on aspirin once a day, Lipitor 80 mg daily, Coreg 3.125 mg twice a day, Plavix 75 mg daily, hydralazine 50 in the morning, 25 in the afternoon, hydrochlorothiazide 25 mg daily, isosorbide mononitrate 60 mg daily, losartan 100 mg daily. PHYSICAL EXAMINATION: Blood pressure 123/70 with a heart rate in the 80s. LUNGS: Clear. HEART: Regular rate and rhythm S1, S2. No S3. No rub. ABDOMEN: Soft, nontender. Right groin hematoma. LAB DATA: Lab data revealed BUN and creatinine of 22 and 0.74, potassium 4.5, hemoglobin of 14.4. IMPRESSION: 1. Status post stenting of the saphenous vein graft to the right coronary artery. 2. Prior stenting of the left anterior descending coronary artery, patent. 3. Hypertension. 4. Hyperlipidemia. RECOMMENDATIONS: From the cardiac standpoint, we will continue present therapy, patient should be able to be discharged home today. MMVIKRAM / VIPINN: [id number] /
[2019-09-05 11:30] LABS: Glucose,Whole Blood 218 mg/dL (75-99)
[2019-09-05] MEDS: ALPRAZolam 0.5 MG TAB PO PRN ×2 (11:32→20:18)
--- NOTE | 2019-09-05 12:16 | P.PN ---
Subjective Progress Note Date: 09/05/19 Principal diagnosis: Chest pain No chest pain or shortness of breath currently. No fevers or chills. No nausea or vomiting. No overnight event. Objective - Vital Signs Vital signs: Vital Signs Temp 97.9 F 09/05/19 08:05 Pulse 81 09/05/19 08:05 Resp 18 09/05/19 08:05 BP 123/70 09/05/19 08:05 Pulse Ox 98 09/05/19 08:05 Intake & Output 09/04/19 09/05/19 09/05/19 18:59 06:59 18:59 Intake Total 1235.98 500 540 Output Total 300 Balance 1235.98 200 540 Weight 83.2 kg 83.2 kg Intake: IV 1235.98 Sodium Chloride 0.9% 1, 1000 000 ml In Empty Bag 1 bag @ 1 ML/KG/HR 84.6 mls/hr IV .[id number] ONE Rx#: [id number] Oral 500 540 Output: Urine 300 Other: # Voids 1 1 3 # Bowel Movements 1 - Exam Constitutional: No acute distress, conversant, pleasant Eyes:Anicteric sclerae, moist conjunctiva, no lid-lag, PERRLA, ENMT: Oropharynx clear, no erythema, exudates Neck: Supple, FROM, no masses, or JVD, No carotid bruits, No thyromegaly Lungs: Clear to auscultation, Clear to percussion, Normal respiratory effort, no accessory muscle use Cardiovascular: Heart regular in rate and rhythm, No murmurs, gallops, or rubs, No peripheral edema Abdominal: Soft, Nontender, no guarding, rebound or rigidity, Normoactive bowel sounds, No hepatomegaly, No splenomegaly, No palpable mass Skin: Normal temperature, tone, texture, turgor, no induration, No subcutaneous nodules, No rash, lesions, No ulcers Extremities: No digital cyanosis, No clubbing, Pedal pulses intact and symmetrical, Radial pulses intact and symmetrical, No calf tenderness Psychiatric: Alert and oriented to person, place and time, appropriate affect, intact judgement Neuro: Muscles Strength 5/5 in all 4 extremities, Sensation to light touch grossly present throughout, Cranial nerves II-XII grossly intact, no focal sensory deficits - Labs CBC & Chem 7: 09/05/19 05:40 09/05/19 05:40 Labs: Abnormal Lab Results - Last 24 Hours (Table) 09/04/19 09/04/19 09/05/19 Range/Units 18:25 19:40 05:40 Sodium 136 L (137-145) mmol/L BUN 22 H (9-20) mg/dL Glucose 109 H (74-99) mg/dL POC Glucose (mg/dL) 137 H 224 H (75-99) mg/dL 09/05/19 09/05/19 Range/Units 05:45 11:28 Sodium (137-145) mmol/L BUN (9-20) mg/dL Glucose (74-99) mg/dL POC Glucose (mg/dL) 116 H 218 H (75-99) mg/dL Assessment and Plan Plan: Chest pain, in setting of significant history of CAD status post CABG -Cardiology consult, coronary angiogram shows patent stent in mid LAD, intermediate to severe lesion in the proximal and distal LAD, critical disease involving the left circumflex, critical disease of the SVG to RCA, s/p successful stenting of the SVG to RCA. -Continue medical management for CAD with aspirin, Lipitor, carvedilol, Plavix -Cardiac monitoring Type II DM -Takes metformin at baseline -A1c 6.1 -EVELINE with FS Hypertension -Continue with home meds: HCTZ, Imdur, Aldactone, Norvasc, Coreg Hyperlipidemia -Continue with Lipitor home med DVT prophylaxis -Heparin subq
[2019-09-05] MEDS ORDERED: HYDROmorphone 0.5 MG/0.5 ML SYRINGE IVP STA ×2 (16:07→16:25)
[2019-09-05 16:16] LABS: Glucose,Whole Blood 120 mg/dL (75-99)
[2019-09-05 20:15] LABS: Glucose,Whole Blood 142 mg/dL (75-99)
[2019-09-05] MEDS: ATORVASTATIN 80 MG TAB PO SCH (20:19)
[2019-09-05] MEDS: hydrALAZINE HCL 25 MG TAB PO SCH (20:20)
[2019-09-06] MEDS: HEPARIN SODIUM,PORCINE 5,000 UNIT/ML 1 ML VIAL SQ SCH ×2 (00:35→09:05)
[2019-09-06 00:40] VITALS: TEMP 97.7
[2019-09-06] MEDS: ACETAMINOPHEN TAB 325 MG TAB PO PRN (05:16)
[2019-09-06 06:19] LABS: Glucose,Whole Blood 130 mg/dL (75-99)
[2019-09-06] MEDS: INSULIN ASPART (NovoLOG) 100 UNIT/ML VIAL SQ SCH ×2 (06:27→12:26)
[2019-09-06] MEDS: CARVEDILOL 3.125 MG TAB PO SCH (06:36)
[2019-09-06] MEDS ORDERED: ASPIRIN 81 MG PO SCH (09:00)
[2019-09-06] MEDS: LOSARTAN 50 MG TAB PO SCH (09:03)
[2019-09-06] MEDS: CLOPIDOGREL 75 MG TAB PO SCH (09:04)
[2019-09-06] MEDS: hydrALAZINE HCL 50 MG TAB PO SCH (09:04)
[2019-09-06] MEDS: DULoxetine HCL 60 MG CAPSULE.DR PO SCH (09:04)
[2019-09-06] MEDS: amLODIPine 10 MG TAB PO SCH (09:05)
[2019-09-06] MEDS: HYDROCHLOROTHIAZIDE 25 MG TAB PO SCH (09:05)
--- NOTE | 2019-09-06 09:30 | PN ---
PROGRESS NOTE Mr. Estes is a 54-year-old male who has a history of coronary artery disease, underwent stenting of his saphenous vein graft to the right coronary artery. He is doing well this morning. He denies any chest pain. His breathing has been stable. He denies any dizziness or palpitation. He denies any nausea. He continues to be on amlodipine 10 mg daily, aspirin once a day, Lipitor 80 mg daily, Coreg 3.125 mg twice a day, Plavix 75 mg daily, hydralazine 50 in the morning, 25 in the afternoon, hydrochlorothiazide 25 mg daily, isosorbide mononitrate 60 mg daily, and losartan 100 mg daily. PHYSICAL EXAMINATION: Blood pressure 109/60 with a heart rate in the 60s. LUNGS: Clear. HEART: Regular rate and S1, S2. No S3. No rub. ABDOMEN: Soft, nontender. EXTREMITIES: No edema. IMPRESSION: 1. Coronary artery disease, status post stenting of the saphenous vein graft to the right coronary artery, stable. 2. History of coronary artery bypass grafting. 3. History of hypertension. 4. Hyperlipidemia. RECOMMENDATIONS: The patient is stable from the cardiac standpoint. I will stop his nitrate at this point. Increase his activity. I would expect he should be able to be discharged today. MMODL / IJN: [id number] /
--- NOTE | 2019-09-06 10:57 | P.DS ---
Providers Date of admission: 09/04/19 09:46 Expected date of discharge: 09/06/19 Attending physician: Jean White MD Consults: 09/02/19 19:33 Consult Physician Urgent Consulting Provider: Randall Price Consult Reason/Comments: Chest Pain Do you want consulting provider notified?: Yes 09/04/19 14:02 Consult Physician Routine Consulting Provider: Randall Price Consult Reason/Comments: Post Interventional patient Do you want consulting provider notified?: Already Contacted Primary care physician: Clyde Livingston DO Hospital Course: 54-year-old male with a PMH of type 2 diabetes mellitus, CAD status post CABG in [address] in [address], hypertension, and hyperlipidemia, currently incarcerated who was sent to the ED with complaints of persistent chest discomfort. He reports that 2 weeks ago, he had a sudden onset of substernal 9/10, pressure-like discomfort, radiating to the left arm, with associated shortness of breath, nausea, and diaphoresis. He denied fever, chills, cough, nausea, vomiting, visual disturbances, or headache. The patient reports that he had previously been following with a aircraft designer at [facility], last seen in March 2019. Patient had reported to them his complaints of exertional dyspnea and substernal chest discomfort, and as per the patient, he was scheduled to undergo a cardiac catheterization with a possible revision of his CABG in June 2019. The patient was however incarcerated in late March 2019, and thereby has not had any follow-ups. He underwent an extensive evaluation in the emergency room EKG showing normal sinus rhythm at 66 bpm with Q waves in leads II and III with no ST-T wave changes noted. CXR was unremarkable. Laboratory evaluation revealed Troponin less than 0.012, WBC count 9.3, hemoglobin 13.7, platelets 189, sodium 136, potassium 4.2, chloride 103, CO2 25, BUN 14, creatinine 0.70, and glucose 152. Trops was cycled throughout the admission and remained negative. He had an echocardiogram that was essentially negative. Also had a heart catheterization done by cardiology with resulting stenting of his graft. Dual antiplatelet therapy was subsequently started. No significant other medication changes were made. Today was stable for discharge. He was cleared by cardiology. He'll be discharged back to long-term. Patient Condition at Discharge: Serious Plan - Discharge Summary Discharge Rx Participant: No New Discharge Prescriptions: No Action hydrALAZINE HCL [Apresoline] 25 mg PO HS hydrALAZINE HCL [Apresoline] 50 mg PO DAILY amLODIPine [Norvasc] 10 mg PO DAILY Isosorbide Mononitrate ER [Imdur] 60 mg PO DAILY Hydrochlorothiazide [Hydrodiuril] 25 mg PO DAILY Atorvastatin [Lipitor] 80 mg PO HS metFORMIN HCL [Glucophage] 500 mg PO BID Losartan Potassium 100 mg PO DAILY DULoxetine HCL [Cymbalta] 60 mg PO BID Carvedilol [Coreg] 25 mg PO BID Aspirin EC [Ecotrin Low Dose] 81 mg PO DAILY Spironolactone [Aldactone] 25 mg PO DAILY Nitroglycerin Sl Tabs [Nitrostat] 0.4 mg SUBLINGUAL Q5M PRN PRN Reason: Chest Pain Naproxen [Naprosyn] 500 mg PO BID Discharge Medication List Aspirin EC [Ecotrin Low Dose] 81 mg PO DAILY 09/02/19 [History] Atorvastatin [Lipitor] 80 mg PO HS 09/02/19 [History] Carvedilol [Coreg] 25 mg PO BID 09/02/19 [History] DULoxetine HCL [Cymbalta] 60 mg PO BID 09/02/19 [History] Hydrochlorothiazide [Hydrodiuril] 25 mg PO DAILY 09/02/19 [History] Isosorbide Mononitrate ER [Imdur] 60 mg PO DAILY 09/02/19 [History] Losartan Potassium 100 mg PO DAILY 09/02/19 [History] Naproxen [Naprosyn] 500 mg PO BID 09/02/19 [History] Nitroglycerin Sl Tabs [Nitrostat] 0.4 mg SUBLINGUAL Q5M PRN 09/02/19 [History] Spironolactone [Aldactone] 25 mg PO DAILY 09/02/19 [History] amLODIPine [Norvasc] 10 mg PO DAILY 09/02/19 [History] hydrALAZINE HCL [Apresoline] 25 mg PO HS 09/02/19 [History] hydrALAZINE HCL [Apresoline] 50 mg PO DAILY 09/02/19 [History] metFORMIN HCL [Glucophage] 500 mg PO BID 09/02/19 [History] Follow up Appointment(s)/Referral(s): [facility] [Provider Group] - 1 Week (Please follow up with your aircraft designer, or Dr. Rock at [facility] within one week after being discharged to talk about options for surgery or managing your blockages with medications. ) Clyde Livingston, [Primary Care Provider] - 1-2 days (Please follow up with your primary provider within one week of being discharged from the hospital. ) Patient Instructions/Handouts: *Surgery [facility] - After Heart Catheterization - [facility] Instructions, Heart Healthy Diet (DC)
[2019-09-06 11:15] VITALS: BP 118/78; PULSE 67; RESP 18
[2019-09-06 11:29] LABS: Glucose,Whole Blood 164 mg/dL (75-99)
== END 2019-09-06 13:16 | disposition home or self-care (01) | DRG 247 ==
LOC: EC 17:55 → SUPCPDRO 17:55 → 3SCARD 19:17 → OBSVTOIN 09-04 09:46
PROVIDERS: ADMIT Internal Medicine; ATTEND Internal Medicine
PROC: B2131ZZ Fluoroscopy of Multiple Coronary Artery Bypass Grafts using Low Osmolar Contrast (ICD-10-PCS; principal; 2019-09-04 15:00)
PROC: 4A023N7 Measurement of Cardiac Sampling and Pressure, Left Heart, Percutaneous Approach (ICD-10-PCS; principal; 2019-09-04 15:00)
PROC: 027034Z Dilation of Coronary Artery, One Artery with Drug-eluting Intraluminal Device, Percutaneous Approach (ICD-10-PCS; principal; 2019-09-04 15:00)
PROC: B2111ZZ Fluoroscopy of Multiple Coronary Arteries using Low Osmolar Contrast (ICD-10-PCS; principal; 2019-09-04 15:00)
DX: I25.810 Atherosclerosis of coronary artery bypass graft(s) without angina pectoris (principal); I25.82 Chronic total occlusion of coronary artery; E11.9 Type 2 diabetes mellitus without complications; E78.5 Hyperlipidemia, unspecified; G89.29 Other chronic pain; I10 Essential (primary) hypertension; M54.5 Low back pain; Z11.59 Encounter for screening for other viral diseases; Z79.82 Long term (current) use of aspirin; Z79.84 Long term (current) use of oral hypoglycemic drugs; Z79.899 Other long term (current) drug therapy; Z95.1 Presence of aortocoronary bypass graft; Z95.5 Presence of coronary angioplasty implant and graft
CPT/HCPCS: 36415; 71046; 80048; 80053; 80061; 83036; 83735; 84484; 85025; 85610; 85730; 87635; 93005; 93306; 93459; 96374; 99285